=== PATIENT | female | born 1995 | race Asian ===

== ENCOUNTER → 2024-01-02 | Outpatient (CLI) | payer BC ==
[2024-01-02 23:04] LABS: HEPATITIS C VIRUS ANTIBODY Negative (Negative)
== END ==
LOC: EDBD 15:03 → LAB 15:03
PROVIDERS: Family Medicine
DX: Z13.220 Encounter for screening for lipoid disorders (principal); Z11.59 Encounter for screening for other viral diseases; Z11.4 Encounter for screening for human immunodeficiency virus [HIV]